=== PATIENT | female | born 1950 | race Caucasian/White ===

== ENCOUNTER → 2019-01-18 08:58 | Outpatient (CLI) | payer MEDICARE, OTHER, SELFPAY ==
--- NOTE | 2019-01-18 | ASPOS_PTH ---
PATIENT: MATILDA KIDD LOC: CT U#:[id number] AGE/SX: 74/F ROOM: RE01/18/[address]: Dr. Venkatesh Valera MD : [id number] BED: DIS: SPEC #: [id number] RECD: 01/18/19 10:56 STATUS: SHAYY MARANDA #: [id number] DAVID: 01/18/19 00:[address]: Venkatesh Valera DEPT: CYTOLOGY RECD BY: Lauri Lora ENTERED: 01/18/19 10:56 SP TYPE: ASP HERE OTHR DR: Dr. Sea Max, DO Tissues: Neck, NOS Procedures: Surgery Specimen Level IV Cytology Other Fine Needle Asp on Site HEADER OPERATION: FNA left neck mass PRE-OP DIAGNOSIS: Left neck mass TISSUE SUBMITTED: FNA left neck mass DIAGNOSIS CYTOLOGY Fine needle aspiration, left neck mass (smears and cell block): Abundant mucoid material and macrophages. See comment. AM:roshni 01/19/19 COMMENT The specimen is evaluated at the time of FNA by Dr. Spicer. Immediate Evaluation = Abundant mucid material and macrophages. 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 The present needle aspirations reveal abundant mucoid material suspicious for either a metastatic or primary mucoid neoplasm. Clinical correlation is suggested. Case has been reviewed in consultation with Dr. Elizabeth who concurs with the above diagnosis. IDC:[facility] CYTOLOGY STUDY Slides are reviewed. CYTOLOGY GROSS Received is 0.3 ml of clear mucoid material labeled with the patient's name, and designated left neck mass. Four imprints and four paps are made from the submitted fluid and the rest is added to CytoLyt for cell block preparation. Submitted for cytology study. / AM:roshni 01/18/19 TC:? CPT: 96615, 24267, 61007, 19104
--- NOTE | 2019-01-18 10:09 | CT_ITS ---
STUDY: CT SOFT TISSUE NECK WITH CONTRAST REASON FOR EXAM: Female, 68 years old. Right neck mass x3-4 months RADIATION DOSAGE (If Supplied By Facility): CTDIvol = ( 14.99 ) mGy, DLP = ( 434.28 ) mGycm TECHNIQUE: The patient was scanned in a multi-detector CT scanner. High resolution transaxial imaging was performed following intravenous administration of IV 100mL Isovue-300 100. Sagittal and coronal images were reconstructed. Individualized dose optimization techniques were used for this CT. COMPARISON: None. FINDINGS: Normal bilateral parotid glands. Normal bilateral manager intranet spaces. Normal bilateral parapharyngeal spaces. Right carotid arterial calcifications are noted. Normal bilateral sublingual and submandibular glands and spaces. Normal visualized nasopharynx. Normal retropharyngeal space. Normal perivertebral space. Normal visualized bilateral faucial tonsils. The visualized tongue, tongue base and oropharynx are normal. There is a dumbbell-shaped mass deep to the right sternocleidomastoid muscle measuring overall 5.1 x 2.2 x 1.5 cm. There is central low attenuation of the inferior portion of the mass suggestive of necrosis. Several tiny calcifications are noted in the posterior aspect of the inferior mass. There is demonstrated an enlarged node immediately inferior to this mass measuring 1.6 x 1.7 x 2.3 cm. There is no abnormal contrast enhancement. Normal epiglottis, bilateral vallecula and hypopharynx. The pre-epiglottic and paraglottic adipose spaces are normal. Normal visualized bilateral piriform sinuses, aryepiglottic folds, vocal cords, and arytenoid-cricoid articulations. Normal subglottic trachea. Normal bilateral lobes of the thyroid gland. Normal visualized pulmonary apices. Normal visualized paranasal sinuses. There are degenerative changes of the lower cervical spine. CT/Soft Tissue Neck WITH Contrast IMPRESSION: 1. There is a dumbbell-shaped mass deep to the right sternocleidomastoid muscle measuring overall 5.1 x 2.2 x 1.5 cm. There is central low attenuation of the inferior portion of the mass suggestive of necrosis. Several tiny calcifications are noted in the posterior aspect of the inferior portion of the mass. 2. There is demonstrated in enlarged node immediately inferior to this mass measuring 1.6 x 1.7 x 2.3 cm. 3. Right carotid arterial calcifications are noted. Electronically Signed: Doug Reaves MD at 17:10 EST , Service support ,
[2019-01-18 10:21] LABS: CREATININE FINGERSTICK 0.8 mg/dL (0.55-1.02)
== END ==
PROVIDERS: Family Provider Preventive Medicine Occupational Medicine; PCP Preventive Medicine Occupational Medicine; Referring Provider Otolaryngology; Visit Provider Otolaryngology
DX: R22.1 Localized swelling, mass and lump, neck (principal)
CPT/HCPCS: 10021; 70491; 88161; 88305; Q9967

== ENCOUNTER → 2023-02-25 | Outpatient (CLI) | payer MEDICARE, OTHER, SELFPAY | END | disposition home or self-care (01) | PROVIDERS: PCP Preventive Medicine Occupational Medicine; Visit Provider Physician Assistant Surgical | DX: N39.0 Urinary tract infection, site not specified (principal) | CPT/HCPCS: 87077; 87086; 87088; 87186 ==